=== PATIENT | male | born 1955 | race Caucasian/White ===

== ENCOUNTER 2019-05-05 08:21 | Day surgery (SDC) | payer OTHER ==
[2019-05-02 12:33] LABS: Basophils % 0.5 % (0-1.3); Hematocrit 44.9 % (39.6-49.0); Lymphocytes % 16.6 % (15.3-44.8); MPV 9.7 fL (7.6-11.3); RBC Red Blood Cell Count 5.05 M/uL (4.33-5.43)
[2019-05-02 12:44] LABS: Potassium 4.4 mmol/L (3.5-5.1)
--- NOTE | 2019-05-02 13:21 | RAD REPORT ---
EXAM DESCRIPTION: Paulina Patel (2 Views)05/02/2019 1:10 pm CLINICAL HISTORY: Preop for inguinal hernia repair COMPARISON: 2008 FINDINGS: The lungs appear clear of acute infiltrate. The heart is normal size IMPRESSION: No acute abnormalities displayed
--- NOTE | 2019-05-02 13:32 | EKG ---
Test Date: 2019-05-02 Test Time: 12:24:44 Cylinder Block Mechanic: SUZI MEASUREMENT RESULTS: Intervals: Rate: 56 NE: 164 QRSD: 88 QT: 412 QTc: 397 [place]ett: P: 65 NE: 164 QRS: 73 T: 55 INTERPRETIVE STATEMENTS: Sinus bradycardia Otherwise normal ECG No previous ECG available for comparison Electronically Signed On 05-02-19 13:31:35 CDT by David Palacios
[2019-05-05] MEDS ORDERED: Ringers Lactate 1,000 ML IV ONE ×2 (08:57→13:03)
[2019-05-05] MEDS ORDERED: LIDOCAINE 2% MPF 5 ML VIAL ONE (10:43)
[2019-05-05] MEDS ORDERED: MIDAZOLAM HCL 2 MG/2 ML INJ ONE (10:43)
[2019-05-05] MEDS ORDERED: PROPOFOL 200 MG/20 ML VIAL IV ONE (10:43)
[2019-05-05] MEDS ORDERED: FENTANYL CITR 100 MCG/2 ML ONE ×2 (10:43→11:51)
[2019-05-05] MEDS ORDERED: ONDANSETRON 4 MG/2 ML VIAL ONE (10:44)
[2019-05-05] MEDS ORDERED: ROCURONIUM 50 MG/5 ML VIAL IV ONE ×2 (10:44→11:41)
[2019-05-05] MEDS ORDERED: CEFAZOLIN/SWI 1gm 1 GM/10 ML SYR ONE (10:47)
--- NOTE | 2019-05-05 12:32 | P.BOP ---
Preoperative diagnosis: bilateral tender inguinal hernias Postoperative diagnosis: same Primary procedure: 1. Laparoscopic repair of left inguinal hernia with mesh Secondary procedure: 2. Laparoscopic repair of right inguinal hernia with mesh Corn Sheller: Charlotte Johnson) Estimated blood loss: <10cc Specimen: hernia sac Findings: bilateral inguinal hernias Anesthesia: General Complications: None Implants: mesh large bilateral Transferred to: Recovery Room Condition: Good
[2019-05-05] MEDS ORDERED: CODEINE 30MG/APAP 300MG TAB ONE (14:39)
--- NOTE | 2019-05-21 00:22 | OP ---
Date of Procedure: 05/05/2019 Surgeon: Josue Whitney MD Theatre Director: BRIANNA Temple Preoperative Diagnosis: Bilateral tender inguinal hernias. Postoperative Diagnosis: Bilateral tender inguinal hernias. Procedures: 1.Laparoscopic repair of left inguinal hernia with mesh. 2.Laparoscopic repair of right inguinal hernia with mesh. Estimated Blood Loss: Less than 10 cc. Specimen: Hernia sac. Findings: Bilateral inguinal hernias. Anesthesia: General plus local. Implant: A mesh large, bilateral. Indications: This is the case of a male who comes to us with bilateral inguinal hernias. The benefi ts, alternatives, and risks of laparoscopic, possible open, repair of bilateral inguinal hernia were fully explained, which include but are not limited to, infection, bleeding, damage to adjacent struct ures, anesthesia complication, recurrence, chronic pain, chronic numbness, RI, even . He also u nderstands this may not relieve any symptoms. He might need more than one surgical intervention. He also understands the use of mesh planned on this area. The pros and cons of mesh placement were dis cussed with him and all the questions were answered to his satisfaction. He did allow me to use the mesh. Description Of Operation: Patient was brought to the operating room, placed in supine position. Ane sthesia was done without complication. A time-out was called. Abdominal area and inguinal area were prepped and draped in the usual sterile fashion. Local anesthesia was applied for incision and firs t incision was done in the supraumbilical region. Incision was carried down until we find the anteri or rectus sheath. It was opened until we exposed the posterior rectus sheath. The extraperitoneal s pace was gently developed with the use of blunt dissection and also a space maker balloon-tipped cath eter placed into that space and directed towards the pubic symphysis. A laparoscope was placed in th e area and the balloon inflated under direct visualization to create extraperitoneal space. A 5 mm t rocar was placed at the area of the pubic symphysis and another one skilled nursing between the first and the second one. The preperitoneal space was further developed by exposing the inferior epigastric vesse ls and keeping them anterior. Kodi ligament was dissected laterally to the junction with the iliac veins. The dissection was continued inferiorly to the iliopubic tract, avoiding damage to the femor al branch of the genitofemoral nerve and lateral femoral cutaneous nerve. The cord structures were c arefully visualized and skeletonized. Indirect sac was identified and reduced by gentle traction int o the peritoneal cavity. Patient also has a direct and indirect hernia on that same side, so a small portion of the direct hernia was sent as a specimen. The indirect hernia was then reduced back into the peritoneal cavity. We protected the structures in the area including the cord and the vein at a ll time. Then, we proceeded to work on the other side. In that case, we have the indirect hernia th at was once again after the cord was skeletonized was dissected from the rest of the cord and reduced back into the peritoneal cavity. This allowed me to introduce a 3D mesh. In this case, we are marilyn g to use large bilateral. The mesh was placed along the inferior aspect of the working space, rolled carefully to cover the direct and indirect spaces. The mesh was secured in place with SorbaFix late rally and superior to the iliopubic tract and inferomedial to the Kodi ligament. The same was done on the opposite side. After ensuring hemostasis, we proceeded then to deflate the area under direct visualization making sure we will hold the hernia sac completely into the peritoneal cavity while ho lding the mesh inferiorly. The area was irrigated. After that, I closed the fascia with #1 Vicryl a nd approximated the skin. A sterile dressing was placed over the area. At the end of the case, test icles were in the scrotum. Patient was sent to Recovery in stable condition. Disposition: Home. Activity: As tolerated. No heavy lifting. Followup: Follow up in my office in 1 week. Call for an appointment at [phone]. Keep area dry for 48 hours, then may shower. Medications: See orders. MARYANA/MODL Voice ID: [id number] Report ID: [id number]
== END 2019-05-05 15:24 | disposition home or self-care (01) ==
LOC: OR 08:21
PROVIDERS: ATTEND Surgery
PROC: 0YUA4JZ Supplement Bilateral Inguinal Region with Synthetic Substitute, Percutaneous Endoscopic Approach (ICD-10-PCS; principal; 2019-05-05 10:00)
DX: K40.20 Bilateral inguinal hernia, without obstruction or gangrene, not specified as recurrent (principal); G47.33 Obstructive sleep apnea (adult) (pediatric); Z83.3 Family history of diabetes mellitus; Z80.8 Family history of malignant neoplasm of other organs or systems
CPT/HCPCS: 36415; 71046; 80048; 85025; 88302; 93005; J0690; J2250; J2405; J2704; J3010

== ENCOUNTER 2022-06-27 12:38 | Observation (INO) | payer OTHER ==
[2022-06-27 13:28] LABS: SARS-CoV-2 Antigen Rapid Res Negative (Negative)
--- OUTSIDE RECORDS SUMMARY | 2022-06-27 14:21 | XMS REPORT | Continuity of Care Document ---
:1955 Author Organization [facility] t Address [address] [place] [address] Care Team Providers Name Role Phone HUMBERTO MALDONADO Attending Clinician Unavailable Only, Adc Test Attending Clinician Unavailable Humberto Maldonado MD Attending Clinician Doctor Unassigned, [place] Attending Clinician Unavailable Payers Payer Name Policy Type Policy Number Effective Date Expiration Date S ouroscar [employer] CHO[employer] POS [id number] 2018 00:00:00 II Problems This patient has no known problems. Allergies, Adverse Reactions, Alerts Allergy Allergy Status Severity Reaction(s) Onset Inactive Treating Comm ents Source Name Type Date Date Clinician NO KNOWN Drug [facility] Social History Social Habit Start Date Stop Date Quantity Comments Source Sex Assigned At [facility] Smoking Status Start Date Stop Date Source Unknown if ever smoked [facility] Medications This patient has no known medications. Procedures Procedure Date / Time Performed Performing Clinician [facility] e CONSENT/REFUSAL FOR 2020-10-12 14:13:09 Doctor Unassigned, No [facility] DIAGNOSIS AND [facility] TREATMENT ASSIGNMENT OF BENEFITS 2020-10-12 14:12:52 Doctor Unassigned, No [facility] Encounters Start End Encounter Admission Attending Care Care Encounter Source Date/Time Date/Time Type Type Clinicians Facility Department ID 2020-10-12 2020-10-12 Outpatient R ERICA WIKIRBY [facility] [id number] Univers 08:30:00 08:30:00 HUMBERTO le [facility] 2020-10-12 2020-10-12 Laboratory Only, Adc Test [facility] [id number] Univers 08:13:12 08:28:12 Only Humberto Maldonado [id number] it[facility] [place] [id number] [address] 2020-10-12 2020-10-12 Orders Doctor KATHARINA [id number] Univers 00:00:00 00:00:00 Only Unassigned, WHITNEY [id number] ity of [place] [facility] [id number] [facility] [address] 2020-10-07 2020-10-07 Outpatient R [facility] [id number] Univers 08:45:00 08:45:00 ity of [facility] Results This patient has no known results.
[2022-06-27 15:57] VITALS: BMI 28.0
[2022-06-27 16:48] LABS: Absolute Lymphocytes (CBC) 1.3 K/uL (0.7-4.9); Hematocrit 37.2 % (39.6-49.0); Lymphocytes % 21.8 % (15.3-44.8); MPV 9.4 fL (7.6-11.3); RBC Red Blood Cell Count 4.18 M/uL (4.33-5.43)
[2022-06-27 17:04] LABS: Albumin 3.6 g/dL (3.4-5.0); Bilirubin Total 0.3 mg/dL (0.2-1.0); Protein, Total 6.2 g/dL (6.4-8.2)
[2022-06-27 17:05] LABS: Magnesium 2.4 mg/dL (1.8-2.4)
--- NOTE | 2022-06-27 19:59 | RAD REPORT ---
EXAM DESCRIPTION: CT - Chest For Pe Angio - 06/27/2022 7:36 pm CLINICAL HISTORY: Syncope COMPARISON: None. TECHNIQUE: Dynamically enhanced axial 3 mm thick images of the chest were obtained during administra tion of <100> mL Isovue 370 IV contrast. Coronal and oblique reconstruction images were generated and reviewed. Exam utilizes a protocol for optimal evaluation of pulmonary arterial tree. Maximum intensity projections 3D imaging was utilized All CT scans are performed using dose optimization technique as appropriate and may include automated exposure control or mA/KV adjustment according to patient size. FINDINGS: A pulmonary embolus is not seen. A thoracic aortic aneurysm is not noted. The distal descending is tortuous. There is a minimal intima l flap within the distal thoracic aorta. No surrounding hematoma. A pleural effusion is not seen. A pericardial effusion is not seen. A lung consolidation is not present. IMPRESSION: Negative for a pulmonary embolism. Minimal intimal flap within the distal descending thoracic aorta. Given that there is no hematoma thi s likely is chronic. Followup CT in 1 year recommended for re-evaluation
--- NOTE | 2022-06-27 20:00 | RAD REPORT ---
EXAM DESCRIPTION: Paulina Patel (2 Views)06/27/2022 7:42 pm CLINICAL HISTORY: Syncope COMPARISON: 2019 FINDINGS: The lungs appear clear of acute infiltrate. The heart is normal size IMPRESSION: No acute abnormalities displayed
[2022-06-27] MEDS: NA CHLORIDE 0.9% 1,000 ML IV SCH (22:53)
[2022-06-28 00:31] VITALS: O2SAT 97
[2022-06-28 06:35] LABS: Thyroid Stimulating Hormone 0.856 uIU/mL (0.360-3.740)
--- NOTE | 2022-06-28 07:12 | HP ---
Date of Admission: 06/27/2022 Chief Complaint: Fainting type of feeling. History Of Present Illness: This is a 66-year-old pleasant male patient, came into our office today and informed me that about 2 months ago, Dr. Baird stopped his Eliquis, and she informed him that he n o longer needed to continue that. He was taking Eliquis for spontaneous DVT of the lower extremity. In the last one month, he has noted that he gets dizzy and feels like he actually feels lightheaded and might actually faint and pass out during this time. Normally, he has these symptoms when he clim bs up stairs. Yesterday was the first time he noticed that he had such a feeling when he stood up fr om the sitting position. He denies any chest pain or palpitation. He does have some shortness of br eath type of feeling associated with these symptoms. He denies any fall or injury. No fever, chills , nausea, vomiting, diarrhea. No blood in the urine or stool. After he was evaluated at our office today, decision was made to admit him to the hospital for this near syncope for further evaluation an d management of this problem. Allergies: NO KNOWN ALLERGIES. Medications: Folic acid 1 mg daily. Review of Systems: Cardiovascular: As mentioned above. Neurology: As mentioned above. All other systems reviewed and negative. Past Medical History: Impaired fasting glucose, obstructive sleep apnea, diverticulosis, benign pros tatic hypertrophy and DVT of the left leg diagnosed in April of 2020. He took anticoagulation therapy up until about 2 months ago. Past Surgical History: Significant for hernia repair, which was for inguinal hernia in 2019, left kn ee surgery and vasectomy. He also had removal of basal cell carcinoma. Family History: Father had coronary artery disease, congestive heart failure, hypertension, hyperlip idemia. Mother, diabetes and multiple myeloma. Sister with ovarian cancer. Social History: Negative for smoking. Use of alcohol occasionally. Physical Examination: Vital Signs: In office today, blood pressure 120/73, pulse 76, respiratory rate, temperature 98 degr ees Fahrenheit, weight 239 pounds, height 76 inches. General: Awake, alert, oriented, not in distress. HEENT: Head atraumatic, normocephalic. Conjunctivae nonerythematous. Sclerae white. Mouth, no thr ush or edema noted. Ears/Nose, no mass, lesion, discharge noted. Neck: Supple. No JVD, lymph nodes, bruit, thyromegaly noted. Lungs: Bilateral good equal air entry. Clear to auscultation. No rhonchi. No rales. Heart: Normal heart sounds, no murmur or gallop. Abdomen: Soft, bowel sounds normal. No guarding, rigidity, tenderness, mass, hepatosplenomegaly, dis tention, or bruit noted. Extremities: No leg edema. No calf tenderness. Skin: No rash, ulcer, cellulitis. Lymphatics: No lymph node enlargement in neck, supraclavicular, infraclavicular region. Neuro: No focal neurological deficit. Chest: Unremarkable. External Genitalia: Deferred. Rectal: Deferred. Laboratory Data: White count 6, hemoglobin 12.6, platelets 150. Sodium 141, potassium 4, chloride 1 11, bicarb 26, BUN 30, creatinine 1.12, glucose 117. Liver function tests normal. Troponin 5.9, D-d abad 434. COVID-19 test negative. Impression: 1.Near syncope. 2.Anemia, unspecified. 3.Thrombocytopenia. 4.Diverticulosis. 5.Impaired fasting glucose. Plan: Admit patient to hospital for further evaluation and management of this problem. We will go a head and get an EKG, echocardiogram and a stress test done. Follow up on chest x-ray, which was orde red to be done today and we will get a CT scan of the chest per PE protocol. Depending on all this w orkup, we will decide further plan of treatment. Details and plan of treatment discussed with the ford decker, and I will see him tomorrow morning for followup. SHARDA/MODL Voice ID: [id number]
--- NOTE | 2022-06-28 09:33 | RAD REPORT ---
EXAM DESCRIPTION: USCarotid Artery Bilateral06/28/2022 9:20 am CLINICAL HISTORY: syncope COMPARISON: None FINDINGS: The velocity of the right internal carotid artery equals 67 cm/sec. The right ICA/CCA rati o 0.8 The velocity of the left internal carotid artery equals 59 cm/sec. The left ICA/CCA ratio 0.7 Mild plaque is present within the carotid arteries. The carotid arteries are tortuous The vertebral arteries demonstrate antegrade flow IMPRESSION: Mild plaque within the carotid arteries without evidence of a hemodynamically significan t stenosis NASCET criteria used. Mild 0-49% stenosis Moderate 50-69% stenosis Severe 70-99% stenosis
[2022-06-28] MEDS ORDERED: REGADENOSON 0.4 MG/5 ML SYR IV ONE (11:03)
[2022-06-28] MEDS: NA CHLORIDE 0.9% 1,000 ML IV SCH (11:52)
[2022-06-28] MEDS ORDERED: AMLODIPINE 5 MG TAB PO ONE (12:48)
--- NOTE | 2022-06-28 13:17 | RAD REPORT ---
EXAM DESCRIPTION: NM - Rest Stress Cardiac Imaging - 06/28/2022 1:09 pm CLINICAL HISTORY: Chest Pain Chest pain. COMPARISON: No comparisons TECHNIQUE: The patient was administered approximately 10mCi of Tc 99m Sestamibi prior to resting SPE CT imaging of the heart. The patient was then administered approximately 30 mCi of Tc 99m Sestamibi f ollowing exercise or pharmacologic stress. Multiplanar SPECT images were reviewed. FINDINGS: No stress induced ischemic defect is seen to suggest stress induced ischemia. The end diastolic volume is 155 ml, the end systolic volume is 60 ml, and the ejection fraction is 61 %. IMPRESSION: No stress induced ischemia.
--- NOTE | 2022-06-28 13:25 | RAD REPORT ---
EXAM DESCRIPTION: CT - Angio Aorta For Dissection - 06/28/2022 1:11 pm CLINICAL HISTORY: Chest pain radiating to the back. abnormal CT chest COMPARISON: Chest For Pe Angio dated 06/27/2022 TECHNIQUE: CT angiography of the aorta was performed with MIPs. All CT scans are performed using dose optimization technique as appropriate and may include automated exposure control or mA/KV adjustment according to patient size. FINDINGS: A left aortic arch is present with normal branching pattern of the great vessels.No acute aortic finding is seen such as aneurysm, penetrating ulcer or dissection. The celiac axis, SMA, JASON and renal arteries are patent. Pulmonary arterial tree suboptimally contrast opacified for full assessment. Mild linear atelectasis is present in both lung bases. The liver demonstrates no focal mass or biliary dilatation.The spleen, pancreas, adrenal glands and k idneys are within normal limits for arterial phase imaging. No bowel obstruction, free fluid or abscess.Moderate stool is present in the colon. Normal appendix.N o pathologic enlarged lymphadenopathy identified.Small fat containing umbilical hernias. Moderate lumbar degenerative changes. IMPRESSION: No acute aortic finding is demonstrated.No worrisome aortic finding.
--- NOTE | 2022-06-28 13:51 | TREADPHA ---
DX: CHEST PAIN Date of Study: 06/28/2022 Ht: 6' 4 " Wt: 231 lb 0 oz Consulting Physician: GADIEL MEDICATIONS: NONE HISTORY: 66 YEAR OLD MALE WITH COMPLAINTS OF DIZZINESS. HISTORY OF [facility] PHYSICIAL EXAMINATION: RESTING B.P.: 143/97 RESTING H.R.: 67 RESTING EKG: NORMAL SINUS RHYTHM PROTOCOL: PHARMACOLOGIC EXERCISE TIME: 3:30 B.P. AT [place] STRESS: 114/69 IMPRESSION: LEXISCAN INJECTED. CARDIOLITE INJECTED. SEE NUCLEAR MEDICINE REPORT. NO CHEST PAIN NOTED. NO VENTRICULAR TACHYCARDIA, SUPRAVENTRICULAR TACHYCARDIA, PREMATURE ATRIAL COMPLEXES OR PREMATURE VENTRICULAR COMPLEXES.
[2022-06-28 17:24] VITALS: BP 121/77; TEMP 97.3
--- NOTE | 2022-06-28 20:13 | CON ---
Date of Consultation: 06/28/[address] Velez on 06/27/2022. I saw the patient on 06/28/2022. Reason For Consultation: Near syncope. History Of Present Illness: Mr. Benitez is 66, who has had a recent deep venous thrombosis. Otherwise, does not have any cardiac risk factors. Does not have hypertension, diabetes, dyslipidemia. Came i n with presyncope while he was going upstairs. He denied any chest pain, nausea, vomiting, diaphores is, PND, orthopnea, pedal edema, or palpitation. 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 Echocardiogram and Lexiscan are pending. Past Medical History: Otherwise, negative. Allergies: NONE. Review of Systems: Negative. Social History: Negative. Family History: Noncontributory. Medications: None. Physical Examination: Vital Signs: Stable, afebrile, sinus rhythm, not orthostatic. HEENT: Negative. Neck: Supple with no bruit. Chest: Clear. Cardiac: Normal. Abdomen: Benign. Extremities: Revealed no clubbing, cyanosis, or edema. Diagnostic Data: Unremarkable. Impression And Plan: Presyncope, possibly arrhythmic in nature. Cardiomyopathy is being ruled out. Echocardiogram is pending. Lexiscan is pending. Carotid Doppler is pending. We will continue to f ollow him. As far as his distal descending aorta dissection, there may be worth getting a CT scan ev fito 6 months to a year to follow up on that. His DVT has resolved. I will discuss the case further with Dr. Velez. SELMA/ZINA Voice ID: [id number] Report ID: [id number]
--- NOTE | 2022-06-28 23:09 | DS ---
Date of Discharge: 06/28/2022 Disposition: Discharged to go home. Physical Examination: HEENT: Unremarkable. Lungs: Clear to auscultation. Heart: Sounds normal. Abdomen: Soft. Bowel sounds normal. No guarding, rigidity, tenderness, or distention. Extremities: No leg edema. Discharge Medications/instructions: 1.Continue folic acid 1 mg daily, as you were taking prior to this admission. 2.Amlodipine 5 mg daily in the morning. 3.Follow up at my office next week. 4.Follow up with Dr. Mcknight and his office will contact the patient to schedule outpatient 1 week H olter monitor. Also communicated with Dr. Mcknight today and will also repeat his echocardiogram at is office in 2-3 months. Laboratory Data: Upon admission yesterday; sodium 141, potassium 4, chloride 111, bicarb 26, BUN 30, creatinine 1.12, glucose 117. Liver function tests unremarkable. Troponin 5.9 today. TSH 0.856. Sodium 140, potassium 4, chloride 110, bicarb 26, BUN 23, creatinine 1.04, glucose 112. His chest x- ray, no acute cardiopulmonary changes. CAT scan of the chest per PE protocol done yesterday, negativ e for pulmonary embolism and radiologist reported minimal intimal flap within the distal descending t horacic aorta. Given that there is no hematoma, this is likely chronic. Today, we did CT scan of th e aorta per dissection protocol and I did communicate with the radiologist who read this and he infor med me that he did not see any evidence off aneurysm or aortic dissection or any other acute findings . He believes that whatever abnormality was noted on CT chest PE protocol appears to be artifact and not true abnormality. Stress test was negative for stress-induced ischemia. Echocardiogram was rep orted as a small pericardial effusion as reported by is manager and I did discuss with him regardin g this also today. Carotid Doppler, no significant abnormality noted. Final Diagnoses: 1.Near syncope. 2.Hypertension. 3.Pericardial effusion. 4.Anemia, unspecified. 5.Thrombocytopenia. 6.Diverticulosis. 7.Impaired fasting glucose. Hospital Course: A 66-year-old male patient, who was admitted to the hospital with near syncope prob beata. Please see dictated H and P for more information. After the patient came into office, he was a dmitted to the hospital and further workup was done and after all the workup was completed today, we decided to discharge him to go home. His blood pressure was elevated today. He was given 1 dose of amlodipine 5 mg. His pulse rate has been in range of 55-60, so we will not start any beta-franc at this point. He tolerated amlodipine very well and details about echocardiogram stress test and CAT scan findings discussed with is manager today and is manager has released him to go home. Medica lly, he is stable for discharge. I will see him in the office next week. SHARDA/ZINA Voice ID: [id number] Report ID: [id number]
--- NOTE | 2022-06-29 07:42 | ECHO ---
HEIGHT: 6 ft 4 in WEIGHT: 231 lb 0 oz DATE OF STUDY: 06/28/[address]: Wilfrido Velez MD 2-DIMENSIONAL: YES M.MODE: YES DOPPLER: YES COLOR FLOW: YES TDS: PORTABLE: YES DEFINITY: BUBBLE STUDY: DIAGNOSIS: NEAR SYNCOPE CARDIAC HISTORY: CATHERIZATION: SURGERY: PROSTHETIC VALVE: PACEMAKER: MEASUREMENTS (cm) DIASTOLIC (NORMALS) SYSTOLIC (NORMALS) IVSd 1.2 (0.6-1.2) LA Diam 3.1 (1.9-4.0) LVEF 58% LVIDd 4.5 (3.5-5.7) LVIDs 3.1 (2.0-3.5) %FS 30% LVPWd 1.3 (0.6-1.2) Ao Diam 3.0 (2.0-3.7) 2 DIMENSIONAL ASSESSMENT: RIGHT ATRIUM: NORMAL LEFT ATRIUM: NORMAL RIGHT VENTRICLE: NORMAL LEFT VENTRICLE: NORMAL TRICUSPID VALVE: NORMAL MITRAL VALVE: NORMAL PULMONIC VALVE: NORMAL AORTIC VALVE: NORMAL PERICARDIAL EFFUSION: SMALL AORTIC ROOT: NORMAL LEFT VENTRICULAR WALL MOTION: NORMAL DOPPLER/COLOR FLOW: NORMAL COMMENTS: SMALL PERICARDIAL EFFUSION. NORMAL LEFT VENTRICULAR SIZE AND FUNCTION. NO WALL MOTION ABNORMALITY. TECHNOLOGIST: SAMMI JIMENEZ
== END 2022-06-28 19:32 | disposition home or self-care (01) ==
LOC: 4TH 14:18
PROVIDERS: ADMIT Internal Medicine; ATTEND Internal Medicine
DX: R55 Syncope and collapse (principal); I10 Essential (primary) hypertension; D64.9 Anemia, unspecified; K57.90 Diverticulosis of intestine, part unspecified, without perforation or abscess without bleeding; D69.6 Thrombocytopenia, unspecified; R73.01 Impaired fasting glucose; I31.3 Pericardial effusion (noninflammatory); G47.33 Obstructive sleep apnea (adult) (pediatric); N40.0 Benign prostatic hyperplasia without lower urinary tract symptoms; Z86.718 Personal history of other venous thrombosis and embolism; Z85.828 Personal history of other malignant neoplasm of skin; Z98.52 Vasectomy status; Z20.822 Contact with and (suspected) exposure to COVID-19; Z82.49 Family history of ischemic heart disease and other diseases of the circulatory system; Z83.3 Family history of diabetes mellitus; Z80.7 Family history of other malignant neoplasms of lymphoid, hematopoietic and related tissues; Z80.41 Family history of malignant neoplasm of ovary
CPT/HCPCS: 93017; 93306; 85025; 80048; 36415 ×2; 83735; 85379; 84443; 84484; 80053; 71275 ×2; 74175; 71046; 93880; 78452; 87811; Q9967; J2785; J7030 ×2; A9500; G0378; G0379

== ENCOUNTER 2025-07-02 07:59 | Day surgery (SDC) | payer OTHER ==
[2025-07-02] MEDS ORDERED: COSYNTROPIN 0.25 MG VIAL IV ONE (08:06)
[2025-07-02] MEDS: COSYNTROPIN 0.25 MG VIAL IV ONE (08:40)
[2025-07-02] MEDS: SODIUM CHLORIDE 0.9% 10ML INJ IV ONE (08:40)
[2025-07-02 08:55] VITALS: BP 134/98; TEMP 98.1; O2SAT 96
[2025-07-02 09:21] VITALS: BMI 29.2
== END 2025-07-02 10:15 | disposition home or self-care (01) ==
LOC: DS 07:59
PROVIDERS: ATTEND Internal Medicine
DX: I95.1 Orthostatic hypotension (principal); N17.9 Acute kidney failure, unspecified; N18.32 Chronic kidney disease, stage 3b
CPT/HCPCS: 36415; 82533 ×4; 82024; 96372; A4216; J0834